=== PATIENT | female | born 1940 | race Caucasian/White ===

== ENCOUNTER 2020-05-07 15:06 | Emergency (ER) | payer MEDICARE ==
[~2020-05-07] VITALS: Ht 152.4 cm; Wt 62.6 kg
--- NOTE | 2020-05-07 15:58 | NUR ---
Pt refusing any medical intervention at this time. States "I want to go to [facility]" Dr Teague notified- in to see pt
[2020-05-07] MEDS ORDERED: EZET10TA16 PO (16:00)
[2020-05-07] MEDS ORDERED: PRAV40TA3 PO (16:00)
[2020-05-07] MEDS ORDERED: SYNTHROID (16:00)
[2020-05-07] MEDS ORDERED: ESCI10TA PO (16:00)
[2020-05-07 16:13] LABS: BASOPHILS # (AUTO) 0.1 /CMM (0.0-0.2); BASOPHILS % (AUTO) 1.1 % (0.0-2.0); EOSINOPHILS % (AUTO) 2.3 % (0.0-6.0); HEMATOCRIT 38 % (33-45); HEMOGLOBIN 12.3 g/dL (11.5-14.8); LYMPHOCYTES # (AUTO) 2.9 /CMM (0.8-4.8); LYMPHOCYTES % (AUTO) 40.1 % (20.0-44.0); MEAN CORPUSCULAR HGB CONC 33 g/dl (31.0-36.0); MEAN CORPUSCULAR VOLUME 90 fL (82-100); MONOCYTES # (AUTO) 0.6 /CMM (0.1-1.30); MONOCYTES % (AUTO) 8.7 % (2.0-12.0); NEUTROPHILS # (AUTO) 3.4 /CMM (1.8-8.9); NEUTROPHILS % (AUTO) 47.8 % (43.0-81.0); PLATELET COUNT (AUTO) 191 /CMM (150-450); RED BLOOD CELL COUNT(AUTO) 4.19 MIL/uL (4.0-5.2); WHITE BLOOD COUNT (AUTO) 7.2 K/uL (4.3-11.0)
[2020-05-07 16:23] LABS: CARBON DIOXIDE 28 mmol/L (21-32); CHLORIDE 103 mmol/L (98-107); CREATININE 0.6 mg/dL (0.6-1.3); GLUCOSE 95 mg/dL (74-106); POTASSIUM 3.7 mmol/L (3.5-5.1); SODIUM SERUM 140 mmol/L (136-145); UREA NITROGEN, BLOOD 15 mg/dL (7-18)
[2020-05-07 16:35] LABS: B-TYPE NATRIURETIC PEPTIDE 72 PG/ML (0-125)
--- NOTE | 2020-05-07 17:00 | NUR ---
patient refused to be admitted, informed Dr. Teague, Antigen cancelled.
[2020-05-07 18:32] VITALS: BP 127/80
--- NOTE | 2020-05-07 18:33 | NUR ---
Patient discharged to home in stable condition. Written and verbal after care instructions given. Patient verbalizes understanding of instruction.
== END 2020-05-07 18:33 | disposition home or self-care (01) ==
LOC: ER 15:11
DX: R53.1 Weakness (principal); R42 Dizziness and giddiness; R53.83 Other fatigue; R00.1 Bradycardia, unspecified; E78.00 Pure hypercholesterolemia, unspecified; Z98.890 Other specified postprocedural states; Z88.2 Allergy status to sulfonamides; Z60.2 Problems related to living alone; Z79.899 Other long term (current) drug therapy
CPT/HCPCS: 36415; 71045-TC; 80048-TC; 83880; 84484-TC; 85025-TC; 85730-TC

== ENCOUNTER 2024-08-14 12:33 | Emergency (ER) | payer MEDICARE ==
[~2024-08-14] VITALS: Ht 152.4 cm; Wt 65.8 kg
[~2024-08-14 12:33] MED LIST: ESCI10TA PO; EZET10TA16 PO; PRAV40TA3 PO; SYNTHROID
[2024-08-14] MEDS: IV NS 0.9% 500 ML BAG IV ONE (13:42)
[2024-08-14 14:09] LABS: BASOPHILS % (AUTO) 0.7 % (0.0-2.0); EOSINOPHILS # (AUTO) 0.3 K/uL (0.0-0.7); HEMATOCRIT 39 % (33-45); LYMPHOCYTES % (AUTO) 34.5 % (20.0-44.0); MEAN CORPUSCULAR HEMOGLOBIN 30 PG (26.0-33.0); MEAN CORPUSCULAR HGB CONC 33 g/dl (31.0-36.0); MEAN CORPUSCULAR VOLUME 89 fL (82-100); MONOCYTES # (AUTO) 0.4 K/uL (0.1-1.30); MONOCYTES % (AUTO) 7.8 % (2.0-12.0); NEUTROPHILS # (AUTO) 2.9 K/uL (1.8-8.9); PLATELET COUNT (AUTO) 202 K/uL (150-450); RED BLOOD CELL COUNT(AUTO) 4.37 MIL/uL (4.0-5.2); RED CELL DISTRIBUTION WIDTH 13.6 % (11.5-15.0); WHITE BLOOD COUNT (AUTO) 5.7 K/uL (4.3-11.0)
[2024-08-14] MEDS ORDERED: OMEG10006 PO (14:10)
[2024-08-14] MEDS ORDERED: UBID100C13 PO (14:10)
[2024-08-14] MEDS ORDERED: ZINC50TA69 PO (14:10)
[2024-08-14] MEDS ORDERED: ALIR75PE INJ (14:10)
[2024-08-14] MEDS ORDERED: ASPI-1169 PO (14:10)
[2024-08-14] MEDS ORDERED: MULT-594 PO (14:10)
[2024-08-14 14:22] LABS: CALCIUM, SERUM 8.9 mg/dL (8.5-10.1); CARBON DIOXIDE 30 mmol/L (21-32); CHLORIDE 104 mmol/L (98-107); CREATININE 0.6 mg/dL (0.6-1.3); GLUCOSE 101 mg/dL (74-106); POTASSIUM 4.3 mmol/L (3.5-5.1); SODIUM SERUM 142 mmol/L (136-145); UREA NITROGEN, BLOOD 15 mg/dL (7-18)
[2024-08-14 16:06] VITALS: BP 128/63; TEMP 98; O2SAT 100
[2024-08-14 18:31] LABS: INR 1.03 (0.91-1.10); PARTIAL THROMBOPLASTIN TIME 27.7 SEC (24.3-34.3); PROTHROMBIN TIME 10.9 SECS (9.2-11.1)
== END 2024-08-14 15:45 | disposition home or self-care (01) ==
LOC: ER 13:17
DX: I10 Essential (primary) hypertension (principal); E78.00 Pure hypercholesterolemia, unspecified; Z60.2 Problems related to living alone; F32.A Depression, unspecified; R26.81 Unsteadiness on feet; R53.1 Weakness; Z79.82 Long term (current) use of aspirin; Z79.899 Other long term (current) drug therapy; Z88.2 Allergy status to sulfonamides; I70.0 Atherosclerosis of aorta
CPT/HCPCS: 99291; 70450; 93005; 71045; 85025; 80048; 36415; 84484; 85730; 82962; J7040